=== PATIENT | male | born 1970 | race African-American/Black ===

== ENCOUNTER 2017-09-18 20:21 | Emergency (ER) | payer MEDICARE ==
--- NOTE | 2017-09-18 20:44 | Emergency Department Record ---
History of Present Illness - General Chief Complaint: Wound, check Stated Complaint: BLEEDING WOUND/HAD STITCHES REMOVED TODAY Time Seen by Provider: 09/18/17 20:22 Source: Patient Mode of arrival: Ambulatory Limitations: No limitations - History of Present Illness Initial Comments: 47 yo male presents after a wound open up at the site of prior infected defibrillator. The patient initially had a defibrillator placed at [facility]. The defibrillator became infected. He was referred to [facility]. The defibrillator was removed 8 days ago. He was at [facility] today and had the sutures removed. About 30 minutes ago he coughed and the wound opened up and has continued to bleed. No fevers, chest pain, or new concerns. He is on IV antibiotics for 2 more weeks at home. MD Complaint: Wound re-check Onset/Timin -: Minutes(s) Returns Today for: Wound recheck Symptoms Since Prior Visit: Other Associated Symptoms: None - Related Data Home Medications Medication Instructions Recorded Confirmed Last Taken Apixaban [Eliquis] 2.5 mg PO DAILY 09/18/17 09/18/17 Unknown Insulin Aspart [Novolog] 1 unit SQ TID 09/18/17 09/18/17 Unknown Water Pill 1 tab PO BID 09/18/17 09/18/17 Unknown Allergies Allergy/AdvReac Type Severity Reaction Status Date / Time No Known Drug Allergies Allergy Verified 09/18/17 20:34 Travel Screening - Travel/Exposure Within Last 30 Days Have you traveled within the last 30 days?: No - Travel/Exposure Within Last Year Have you traveled outside the [place] in the last year?: No - Additonal Travel Details Have you been exposed to anyone with a communicable illness?: No - Travel Symptoms Symptom Screening: None Review of Systems Constitutional: Denies: Chills, Fever, Malaise, Weakness Eyes: Denies: Eye discharge ENT: Denies: Congestion, Throat pain Respiratory: Denies: Cough Cardiovascular: Denies: Chest pain, Palpitations, Syncope Endocrine: Denies: Fatigue Gastrointestinal: Denies: Abdominal pain, Diarrhea, Nausea, Vomiting Genitourinary: Denies: Dysuria, Frequency, Hematuria Musculoskeletal: Denies: Arthralgia, Back pain, Myalgia Skin: Reports: Other Neurological: Denies: Confusion, Headache Psychiatric: Denies: Anxiety Hematological/Lymphatic: Denies: Blood Clots, Easy bleeding, Easy bruising Past Medical History - SOCIAL HISTORY Smoking Status: Never smoker Alcohol Use: None Drug Use: None - RESPIRATORY Hx Respiratory Disorders: No - CARDIOVASCULAR Hx Cardio Disorders: Yes Hx Deep Vein Thrombosis: Yes - NEURO Hx Neuro Disorders: No - GI Hx GI Disorders: No - Hx Genitourinary Disorders: No - ENDOCRINE Hx Endocrine Disorders: Yes Hx Diabetes: Yes - MUSCULOSKELETAL Hx Musculoskeletal Disorders: No - HEMATOLOGY/ONCOLOGY Hx Hematology/Oncology Disorders: No Family Medical History Any Significant Family History?: No Physical Exam - General General Appearance: Alert, Oriented x3, Cooperative, No acute distress Limitations: No limitations - Head Head exam: Atraumatic, Normal inspection - Eye Eye exam: Normal appearance - ENT ENT exam: Normal exam Ear exam: Normal external inspection Nasal Exam: Normal inspection - Neck Neck exam: Normal inspection - Respiratory Respiratory exam: Normal lung sounds bilaterally. negative: Respiratory distress, Rhonchi, Stridor, Wheezes - Cardiovascular Cardiovascular Exam: Regular rate, Normal rhythm, Normal heart sounds, Other ( 3.5 cm of wound dehiscense, clean, mild oozing, no pus.) - Rectal Rectal exam: Deferred - exam: Deferred - Extremities Extremities exam: Normal inspection - Neurological Neurological exam: Alert, Oriented X3 - Psychiatric Psychiatric exam: Normal affect, Normal mood - Skin Skin exam: Dry, Intact, Normal color, Warm Course Vital Signs 09/18/17 20:27 Temperature 98.5 F Pulse Rate 80 Respiratory 20 Rate Blood Pressure 124/76 Pulse Ox 100 - Reevaluation(s) Reevaluation #1: The skin was prepped with Betadine The open wound was irrigated with 500cc NS under sterile technique Thrombigel was placed in the wound with hemostasis Sterile gauze and a clear op site were placed [facility] insulation inspector paged for the patient's doctor 09/18/17 20:44 09/18/17 20:50 I ELIDA Townsend of [facility] EP We discussed the care provided in the ED He agreed with no immediate closure due to infection risks The patient is to return to the clinic tomorrow for a wound check or sooner if bleeding. The patient had mild oozing with the thrombigel The packing was replaced with throbigel with TXA topical No additional bleeding occurred Clear occlusive dressing placed Stable at DC Disposition Disposition: Discharge Clinical Impression: Wound dehiscence Disposition: Home, Self-Care Condition: (1) Good Instructions: Wound Dehiscence (ED) Additional Instructions: Call first thing in the morning to be seen by your film reader tomorrow Return or go to [facility] if you have any bleeding or concerns tonight Forms: Patient Portal Access Time of Disposition: 21:37 Quality - Quality Measures Quality Measures: N/A - Blood Pressure Screening Does Patient Have Any of the Following: Active Dx of HTN Blood Pressure Classification: Pre-Hypertensive BP Reading Systolic Measurement: 124 Diastolic Measurement: 76 Screening for High Blood Pressure: Patient Exclusion, Hx of HTN [[id number]] Pre-Hypertensive Follow-up Interventions: Referral to alternative/primary care provider.
[2017-09-18] MEDS ORDERED: THROMBIN/GELATIN FOAM HEMOSTAT (THROMBI-GEL) TP ONE (21:38)
[2017-09-18] MEDS ORDERED: TOPICAL LIDOCAINE W/ EPI 5 ML TOP ONE (21:39)
[2017-09-18] MEDS ORDERED: TRANEXAMIC ACID 1,000 MG/10 ML ML TOP ONE (21:39)
== END 2017-09-18 21:44 | disposition home or self-care (01) ==
LOC: ER 20:21
DX: T81.31XA Disruption of external operation (surgical) wound, not elsewhere classified, initial encounter (principal); Y83.8 Other surgical procedures as the cause of abnormal reaction of the patient, or of later complication, without mention of misadventure at the time of the procedure; E11.9 Type 2 diabetes mellitus without complications; Z86.718 Personal history of other venous thrombosis and embolism; I10 Essential (primary) hypertension; Z79.01 Long term (current) use of anticoagulants; Z79.4 Long term (current) use of insulin
CPT/HCPCS: 99284 ×2; J3490